=== PATIENT | female | born 1995 ===

== ENCOUNTER 2020-07-25 18:00 | Outpatient (CLI) | payer BC | END 2020-07-25 18:01 | disposition home or self-care (01) | LOC: SLEEPLAB 18:00 | PROVIDERS: ATTEND Dentist General Practice | DX: G47.33 Obstructive sleep apnea (adult) (pediatric) (principal); R06.83 Snoring; G47.63 Sleep related bruxism; F32.9 Major depressive disorder, single episode, unspecified; G47.00 Insomnia, unspecified | CPT/HCPCS: 95806 ==